=== PATIENT | male | born 1980 ===

== ENCOUNTER 2018-02-01 17:11 | Emergency (ER) | payer SELFPAY ==
[2018-02-01 17:37] VITALS: O2SAT 100
--- NOTE | 2018-02-01 18:25 | ED PDOC ---
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 Otherwise, denies saddle anesthesia, incontinence, nausea, vomiting, abdominal pain, shortness of breath, chest pain, dysuria, fever, and hematuria. Reports taking ibuprofen at onset of symptoms without any relief; persistent pain with ambulation and bending. Denies radiation of the pain. PMD: [facility] Past Medical History Reviewed: Historical Data, Nursing Documentation, Vital Signs Vital Signs: Last Vital Signs Temp 98.1 F 02/01/18 17:37 Pulse 79 02/01/18 17:37 Resp 16 02/01/18 17:37 BP 151/78 H 02/01/18 17:37 Pulse Ox 100 02/01/18 17:37 - Medical History PMH: No Chronic Diseases - Surgical History Surgical History: No Surg Hx - Family History Family History: States: Unknown Family Hx - Social History Current smoker - smoking cessation education provided: No Alcohol: Social Drugs: Denies - Home Medications Home Medications: Ambulatory Orders Medication Instructions Recorded RX: Naproxen [Naprosyn] 500 mg PO BID PRN #30 tab 06/06/17 RX: Simethicone [Gas Relief] 80 mg PO TID PRN #10 ctb 06/06/17 Famotidine [Pepcid] 20 mg PO DAILY #30 tab 07/28/17 Cyclobenzaprine [Cyclobenzaprine 10 mg PO Q8 PRN #12 tab 02/01/18 HCl] Meloxicam [Mobic] 15 mg PO DAILY #10 tab 02/01/18 - Allergies Allergies/Adverse Reactions: Allergies Allergy/AdvReac Type Severity Reaction Status Date / Time Penicillins Allergy Mild SWELLING Verified 07/28/17 11:09 Review of Systems ROS Statement: Except As Marked, All Systems Reviewed And Found Negative Constitutional: Negative for: Fever Cardiovascular: Negative for: Chest Pain Respiratory: Negative for: Shortness of Breath Gastrointestinal: Negative for: Nausea, Vomiting, Abdominal Pain Genitourinary Male: Negative for: Dysuria, Incontinence, Hematuria Musculoskeletal: Positive for: Back Pain (lower) Neurological: Negative for: Other (saddle anesthesia) Physical Exam - Reviewed Nursing Documentation Reviewed: Yes Vital Signs Reviewed: Yes - Physical Exam Comments: GENERAL APPEARANCE: Patient is awake, alert, oriented x 3, in no acute distress. SKIN: Warm, dry; (-) cyanosis. ENMT: Mucous membranes moist. Airway patent, (-) stridor. NECK: Supple, FROM CHEST AND RESPIRATORY: (-) rales, (-) rhonchi, (-) wheezes; breath sounds equal bilaterally. Respirations even and nonlabored. HEART AND CARDIOVASCULAR: (-) irregularity ABDOMEN AND GI: Soft; (-) tenderness (-) distention (-) guarding; (-) palpable mass. BACK: (+) midline lumbar tenderness, (-) deformity/step-off (-) CVA tenderness bilaterally. EXTREMITIES: (-) deformity. Distal pulses good bilaterally. NEURO AND PSYCH: Mental status as above. Intact sensation bilaterally; normal strength in extension of the knees, plantar and dorsiflexion of the toes. Gait: steady. Speech: clear. (-) facial asymmetry - ECG O2 Sat by Pulse Oximetry: 100 (RA) Pulse Ox Interpretation: Normal Medical Decision Making Medical Decision Making: Initial Impression: back pain Time: 1804 Initial Plan: --Flexeril 10mg PO (Not driving home) --Tylenol 650mg PO --Lumbar spine XR --Reevaluation 1904 Toradol IM ordered for additional pain control. Pending XR evaluation. 1958 XR: no fracture, as read by MARITO. Patient advised that official radiology read of XR is still pending and will call the patient if there is any discrepancy within 24 hours. 2019 Repeat BP: 138/74 On re-evaluation, patient reports improvement of symptoms. Girlfriend sitting on patient's lap. On exam, patient remains AAOx3, in no acute distress. Lungs clear to auscultation, cardiac RRR, repeat neuro exam shows no focal findings. Gait steady in ED. Vitals stable. Lab / Diagnostic results d/w the patient in great detail. Diagnosis of acute back pain, lumbar back strain d/w the patient. Based on history, exam and diagnostic results, plan will be for outpatient follow up with clinic/ortho. Patient instructed to follow-up with pmd / referral provided / the clinic in 1- 2 days without fail. Advised to take medication as prescribed. Return to the emergency room at any time for any new or worsening symptoms. Patient states he fully agrees with and understands discharge instructions. States that he agrees with the plan and disposition. Verbalized and repeated discharge instructions and plan. I have given the patient opportunity to ask any additional questions. Scribe Attestation: Documented by Renee Gallegos, acting as a scribe for Mirna Barragan PA-C. Provider Scribe Attestation: All medical record entries made by the Scribe were at my direction and personally dictated by me. I have reviewed the chart and agree that the record accurately reflects my personal performance of the history, physical exam, medical decision making, and the department course for this patient. I have also personally directed, reviewed, and agree with the discharge instructions and disposition. Disposition - Clinical Impression Clinical Impression: Acute back pain, Low back pain, Lumbar back sprain - Patient ED Disposition Is Patient to be Admitted: No Counseled Patient/Family Regarding: Studies Performed, Diagnosis, Need For Followup, Rx Given - Disposition Referrals: [facility] [Outside] Rubia Krishnamurthy MD [Staff Provider] - Disposition: Routine/Home Disposition Time: 20:20 Condition: STABLE Additional Instructions: La atencin mdica de emergencia que recibi hoy se dirigi a blaise sntomas agudos. Si le recetaron algn medicamento, llnelo y tmelo segn las indicaciones. Los sntomas pueden tardar varios simon en resolverse. Regrese al Departamento de Emergencias si blaise sntomas empeoran, no mejoran o si tiene otros problemas. Comunquese con nascimento mdico dentro de 2 simon para jackie nueva evaluacin y sha un seguimiento o llame a иван de los mdicos / clnicas a los que parish sido referido y que figuran en el formulario de Informacin de visita al paciente que se incluye en nascimento paquete de lena. Lleve con usted a nascimento consulta de seguimiento toda la documentacin que recibi del lena junto con los medicamentos que est tomando. Nuestro tratamiento no puede reemplazar la atencin mdica continua por parte de un proveedor de atencin primaria (PCP) fuera del departamento de emergencias. Prescriptions: Cyclobenzaprine [Cyclobenzaprine HCl] 10 mg PO Q8 PRN #12 tab PRN Reason: Muscle Spasm Meloxicam [Mobic] 15 mg PO DAILY #10 tab Instructions: Low Back Pain in Adults, Lumbar Muscle Strain, Do I Need an X-ray (or Other Test) for Low Back Pain? Forms: [employer] (Syriac) Print Language: SAMI - POA Present On Arrival: None
[2018-02-01 20:39] VITALS: BP 138/74; PULSE 75; RESP 18; TEMP 98
--- NOTE | 2018-02-02 12:07 | RAD ---
Date of service: 02/01/2018 PROCEDURE: Radiographs of the Lumbar Spine. HISTORY: pain COMPARISON: No prior. FINDINGS: BONES: Normal alignment. No listhesis. No fracture. DISC SPACES: Unremarkable. OTHER FINDINGS: None. IMPRESSION: Unremarkable radiographs of the lumbar spine.
== END 2018-02-01 20:30 | disposition home or self-care (01) ==
LOC: H.ER 17:11 → SUPCPDRO 17:11 → H.ER 20:30
DX: M54.5 Low back pain (principal); S33.5XXA Sprain of ligaments of lumbar spine, initial encounter; X50.9XXA Other and unspecified overexertion or strenuous movements or postures, initial encounter; Y92.89 Other specified places as the place of occurrence of the external cause; Z88.0 Allergy status to penicillin
CPT/HCPCS: 72114; 96372; 99282; J1885